=== PATIENT | female | born 1950 | race Two or more races ===

== ENCOUNTER 2024-09-20 13:56 | Emergency (ER) | payer OTHER ==
[~2024-09-20] VITALS: Ht 162.6 cm; Wt 52.2 kg
[2024-09-20] MEDS ORDERED: TRAMADOL HCL E100 M1 (14:20)
[2024-09-20] MEDS ORDERED: TRAMADOL HCL 50 MG TABLET PO ONE (14:45)
== END 2024-09-20 18:15 | disposition home or self-care (01) ==
LOC: ER 13:56
DX: M54.50 Low back pain, unspecified (principal); Z88.6 Allergy status to analgesic agent